=== PATIENT | female | born 2000 | race African-American/Black ===

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

== ENCOUNTER 2022-01-09 08:29 | Emergency (ER) | payer OTHER, SELFPAY ==
--- NOTE | ~2022-01-09 | XR_ITS ---
EXAMINATION: XR humerus LT DATE: 01/09/2022 09:35 INDICATION: Contraceptive implant displacement. TECHNIQUE: 2 views of the left humerus were obtained. COMPARISON: None. FINDINGS: Bone alignment is normal. No fracture. Joint spaces are well maintained. There is a 4.3 x 0 .2 cm subcutaneous implant in the medial upper arm. IMPRESSION: 1. Subcutaneous implant in the medial upper arm. Reviewed, dictated and finalized at location A.
[2022-01-09 08:33] VITALS: BP 116/56; PULSE 81; RESP 20; TEMP 36.4; O2SAT 100
--- NOTE | 2022-01-09 09:35 | ED.GENADULT ---
HPI - General Adult General Chief complaint: Unspecified Stated complaint: NEXPLANON ?MIGRATED Time Seen by Provider: 01/09/22 08:53 Source: patient Limitations: no limitations History of Present Illness HPI narrative: Patient is a 21-year-old female who presents to the ED with report of feeling like her Nexplanon has moved. Patient reports she had the Nexplanon placed 1 year ago. She has not had any issues with this. Around 1 week ago, she thought her Nexplanon had moved. She could no longer feel it in her L inner upper arm. Two days ago, she felt a knot on her L shoulder and thinks the Nexplanon has moved to her shoulder. She has not tried following with her OBGYN. Denies any pain. No fevers, other infectious symptoms. No redness/swelling of LUE. Related Data Home Medications Medication Instructions Recorded Confirmed fluticasone propionate 110 1 puff inhalation Q12H 01/09/22 mcg/actuation HFA aerosol inhaler (Flovent HFA) loratadine 10 mg tablet 10 mg PO DAILY 01/09/22 Allergies Allergy/AdvReac Type Severity Reaction Status Date / Time shellfish derived Allergy Difficulty Verified 01/09/22 08:57 Breathing Review of Systems Review of Systems: CONSTITUTIONAL: Denies fever, chills, or sweats. GASTROINTESTINAL: Denies nausea, vomiting. SKIN: Denies rashes, swelling of left upper extremity. MUSCULOSKELETAL: Reports knot to left shoulder. Denies left upper extremity pain. NEUROLOGIC: Denies tingling or weakness. All systems reviewed & are unremarkable except as noted in HPI and below PMFSH Past Medical History Medical History Asthma Surgical History Surgical History (Updated 01/09/22 @ 09:38 by Jazlyn Huerta PA-C) No pertinent past surgical history Social History Social History (Updated 01/09/22 @ 09:39 by Jazlyn Huerta PA-C) Smoking status: Never smoker Substance use: current Substance use type: marijuana Exam Narrative: GENERAL: Well appearing, obese, non-toxic, in no acute distress. HEAD: Normocephalic, atraumatic. NECK: Supple. No adenopathy, no masses. RESPIRATORY: Airway patent, respirations nonlabored. Clear to auscultation bilaterally, no rales, rhonchi, wheezing. CARDIOVASCULAR: Regular rate and rhythm without murmurs, rubs, or gallops. Radial pulses 2+ and equal bilaterally. MUSCULOSKELETAL: Moves all extremities. Strength/ROM intact without gross deformities. Full range of motion of left upper extremity. No tenderness to palpation throughout upper inner arm or left shoulder. Unable to palpate Nexplanon. SKIN: Warm, dry, normal color. No rashes. NEURO: A&O X3. Speech clear. Cranial nerves II-XII grossly intact. Steady gait. No ataxic movements. PSYCHIATRIC: Appropriate mood and affect. Normal interaction. Course Vital Signs Vital signs: Vital Signs Temperature 97.6 F 01/09/22 08:33 Pulse Rate 81 01/09/22 08:33 Respiratory Rate 20 01/09/22 08:33 Blood Pressure 116/56 L 01/09/22 08:33 Pulse Oximetry 100 01/09/22 08:33 Oxygen Delivery Room Air 01/09/22 08:33 Temperature 97.6 F 01/09/22 08:33 Pulse Rate 66 01/09/22 09:55 Respiratory Rate 18 01/09/22 09:55 Blood Pressure 115/77 01/09/22 09:55 Pulse Oximetry 100 01/09/22 09:55 Oxygen Delivery Room Air 01/09/22 08:33 Medical Decision Making MDM Narrative Medical decision making narrative: Patient presented to ED with thinking her Nexplanon had migrated to her left shoulder. Placed 1 year ago. Patient denying pain, infectious symptoms. X-ray of left humerus obtained showing Nexplanon in medial inner upper arm. Patient reassured by this. No other concerns. Discharge home. Medical Records Medical records reviewed: Yes I reviewed the external patient's medical records. Vital Signs Vital Signs: Vital Signs Temperature 97.6 F 01/09/22 08:33 Pulse Rate 81 01/09/22 08:33 Respiratory Rate 2
[2022-01-09 09:55] VITALS: BP 115/77; PULSE 66; RESP 18; O2SAT 100
== END 2022-01-09 09:56 | disposition home or self-care (01) ==
PROVIDERS: Emergency Provider Emergency Medicine; PCP Physician Assistant
DX: Z30.46 Encounter for surveillance of implantable subdermal contraceptive (principal); J45.909 Unspecified asthma, uncomplicated
CPT/HCPCS: 73060; 99283